=== PATIENT | male | born 1950 | race Caucasian/White ===

== ENCOUNTER → 2022-02-06 | Outpatient (CLI) | payer MEDICARE ==
--- NOTE | 2022-02-06 10:04 | MR ---
EXAMINATION TYPE: MR knee RT wo con DATE OF EXAM: 02/06/2022 COMPARISON: HISTORY: Right knee pain/swelling after walking on an incline. TECHNIQUE: Multiplanar, multisequence imaging of the right knee is performed without IV contrast. FINDINGS: MEDIAL MENISCUS: Complex tear medial meniscus involving the sellar body and posterior horn. There branden ears to be a bucket-handle component. Correlate clinically. LATERAL MENISCUS: Tear anterior horn lateral meniscus. Posterior horn appears intact. CRUCIATE LIGAMENTS: Increased signal within the ACL may reflect a chronic partial tear. No evidence f or full-thickness tear. PCL is intact. COLLATERAL LIGAMENTS: The medial collateral ligament and lateral collateral ligament complex are inta ct and unremarkable. EXTENSOR MECHANISM: Visualized quadriceps and patellar tendons are intact. EFFUSION: Small suprapatellar joint effusion. POPLITEAL CYST: No popliteal/ramey cyst. TRICOMPARTMENT SPACES: Severe narrowing medial tibiofemoral joint space. Mild narrowing patellofemora l joint space. Intercondylar spur formation seen as well as spurring about the margins of the femoral condyles. CARTILAGE: Cartilaginous thinning noted medial femoral condyle and medial tibial plateau. BONE MARROW SIGNAL: Subchondral edema medial femoral condyle. OTHER: No additional significant abnormality is appreciated. IMPRESSION: 1. Complex tear body and posterior horn medial meniscus with bucket-handle component felt to be prese nt. 2. Tear anterior horn lateral meniscus. 3. Chronic appearing partial tear ACL. 4. Changes of osteoarthritis.
== END | disposition home or self-care (01) ==
LOC: RADMRIMAIN 08:21
PROVIDERS: ATTEND Orthopaedic Surgery
DX: S83.241A Other tear of medial meniscus, current injury, right knee, initial encounter (principal); M17.11 Unilateral primary osteoarthritis, right knee